=== PATIENT | male | born 1980 | race Caucasian/White ===

== ENCOUNTER 2017-03-25 21:44 | Emergency (ER) | payer OTHER ==
[~2017-03-25] VITALS: Ht 185.4 cm; Wt 83.9 kg
--- NOTE | ~2017-03-25 | CR173 ---
[facility]. [facility] A Service of [facility] & [facility] RADIOLOGY TEXT RESULTS PATIENT: NYA FROST LOCATION: SED : 76 UNIT #: [id number] AGE: [address]: Alexandre Simon MD SEX: M ORDER DR: [id number] [id number] E MR#: [id number] Acc #: [id number] NAME: NYA FROST : 1980 SEX: M STUDY DATE/TIME: 03/25/2017 23:24 UNIT: SED ROOM: STUDY DESCRIPTION: CR Knee 3 Views Rt Attending Physician: Alexandre Simon M.D. Ordering Physician: Alexandre Simon M.D. Primary Care Physician: No Primary Care Physician MEDICAL IMAGING REPORT This report is preliminary unless electronic signature is present. EXAM Right knee series. INDICATIONS Right knee pain and swelling since Saturday after an injury. PROCEDURE Three views of the right knee. COMPARISON None. FINDINGS Anterior knee soft tissue swelling. No acute fracture, dislocation or joint effusion. IMPRESSION Anterior knee soft tissue swelling. No acute bone injury. Dictated by... Mushtaq Sandy M.D. THIS IS AN ELECTRONICALLY VERIFIED REPORT Mushtaq Sandy M.D. at 03/26/2017 9:53 PM EED/manuel TD: 03/26/2017 13:28 JOB #: [id number] MEDICAL IMAGING REPORT Page 1 of 1
[~2017-03-25 21:44] MED LIST: ACETAMINOPHEN PO; BENADRYL25 M1 PO; BENTYL20 MG PO; CATAPRES0.1 MG PO; CIPRO PO; FAMOTIDINE PO; FLAGYL PO; FLEXERIL10 M1 PO; K-DUR20 ME2 DOB; LORTAB 5/500 TA1 TA1 PO; NO MEDICATIONS; PEPCID AC20 M2 PO; PHENERGAN SUPP25 MG PR; PHENERGAN12.5 M1 PR; PHENERGAN25 M1 PO; PHENERGAN25 MG PO; PRILOSEC PO; PRILOSEC20 MG PO; PROTONIX PO; REGLAN10 MG PO; VOLTAREN75 MG PO; ZANTAC150 MG PO; ZOFRAN ODT4 MG PO; ZOFRAN PO
[2017-03-25] MEDS ORDERED: NO MEDICATIONS (21:54)
[2017-03-25 22:43] LABS: BASOPHIL# 0.1 X10e3 (0-0.3); BASOPHIL% 0.9 % (0-2.5); EOSINOPHIL% 0.4 % (0.0-7.0); HEMOGLOBIN 12.2 gm/dL (13.0-16.0); LYMPHOCYTE# 1.9 X10e3 (1.0-3.5); MEAN CELL VOLUME 85.5 FL (83-96); MEAN CORPUSCULAR HEMOGLOBIN 29.1 PG (28-34); MEAN PLATELET VOLUME 7.4 FL (6.5-11.5); MONOCYTE# 1.3 X10e3 (0-1.0); MONOCYTE% 10.4 % (3.0-12.0); NEUTROPHIL# 9.1 X10e3 (1.5-7.1); NEUTROPHIL% 73.3 % (40-75); PLATELET COUNT 238 X10e3 (140-420); RED CELL DISTRIBUTION WIDTH 13.7 % (11.0-15.5); WHITE BLOOD COUNT 12.4 X10e3 (4.0-10.5)
[2017-03-25 22:44] LABS: DIFF IND NO
[2017-03-25 22:54] LABS: BUN/CREATININE RATIO 12.5; CALCIUM SERUM 8.4 mg/dL (8.4-10.2); CREATININE SERUM 0.8 mg/dL (0.6-1.4); GLOM FILT RATE Estimated 113.4 mL/min (>60); POTASSIUM 3.7 mmol/L (3.5-5.1)
== END 2017-03-26 02:03 | disposition home or self-care (01) ==
LOC: SED 21:44
PROVIDERS: Emergency Medicine
DX: L03.115 Cellulitis of right lower limb (principal); F41.9 Anxiety disorder, unspecified; F17.200 Nicotine dependence, unspecified, uncomplicated
CPT/HCPCS: 36415; 73562; 80048; 85025; 85651; 96365; 96375; 99284; J0696; J1170; J2405

== ENCOUNTER 2017-05-17 14:10 | Emergency (ER) | payer OTHER ==
[~2017-05-17] VITALS: Ht 185.4 cm; Wt 81.6 kg
--- NOTE | ~2017-05-17 | EKG ---
PATIENT: NYA FROST UNIT #: [id number] Ventricular Rate: 85 BPM Atrial Rate: 85 BPM P-R Interval: 132 ms QRS Duration: 98 ms Q-T Interval: 382 ms QTC Calculation(Bezet): 454 ms P Grabill: 75 degrees Calculated R Grabill: 83 degrees Calculated T Grabill: 48 degrees Diagnosis Line: Normal sinus rhythm Diagnosis Line: Normal ECG Diagnosis Line: When compared with ECG of 30-OCT-2015 23:52, Diagnosis Line: No significant change was found Diagnosis Line: Confirmed by RUBÉN SARAH MD ([id number]) on 05/19/2017 Diagnosis Line: 10:59:34 PM INTERPRETING MD: TYREL WYATT
--- NOTE | ~2017-05-17 | CR72 ---
[facility] A Service [facility] RADIOLOGY TEXT RESULTS PATIENT: NYA FROST LOCATION: [facility] : [birth year] UNIT #: [id number] AGE: [address]: Maximilian Whiting MD SEX: M ORDER DR: [id number] [facility]. [place], [place] [address] [id number] E MR#: [id number] Acc #: [id number] NAME: NYA FROST : 1980 SEX: M STUDY DATE/TIME: 05/17/2017 14:43 UNIT: [facility] ROOM: STUDY DESCRIPTION: CR Chest Single View Portable Attending Physician: Maximilian Whiting M.D. Ordering Physician: Maximilian Whiting M.D. Primary Care Physician: No Primary Care Physician MEDICAL IMAGING REPORT This report is preliminary unless electronic signature is present EXAM Portable chest x-ray, 05/17/2017. HISTORY Chest pain, cough, congestion, smoked marijuana 12:30 p.m. Chest pain, short of air. TECHNIQUE AP radiograph of the chest is presented. COMPARISON 11/27/2009 FINDINGS Heart and mediastinum normal in size and contour. The lungs are well-inflated bilaterally. There is no evidence of acute infectious or inflammatory disease, pleural effusion or pneumothorax. No suspicious nodule. The bony structures are unremarkable. Dictated by... Gerardo Combs M.D. THIS IS AN ELECTRONICALLY VERIFIED REPORT Gerardo Combs M.D. at 05/18/2017 2:16 PM MEGA/darlene TD: 05/17/2017 21:23 JOB #: [id number] MEDICAL IMAGING REPORT [facility] A Service [facility] RADIOLOGY TEXT RESULTS PATIENT: NYA FROST LOCATION: [facility] : 76 UNIT #: [id number] AGE: [address]: Maximilian Whiting MD SEX: M ORDER DR: Page 1 of 1 COPY
[2017-05-17 15:21] LABS: BASOPHIL# 0.1 X10e3 (0-0.3); BASOPHIL% 0.8 % (0-2.5); EOSINOPHIL# 0.1 X10e3 (0-0.7); EOSINOPHIL% 1.3 % (0.0-7.0); HEMATOCRIT 38.9 % (38.0-50.0); HEMOGLOBIN 13.5 gm/dL (13.0-16.0); LYMPHOCYTE# 2.8 X10e3 (1.0-3.5); LYMPHOCYTE% 35.3 % (17.0-45.0); MEAN CELL VOLUME 83.5 FL (83-96); MEAN CORPUSCULAR HEMOGLOBIN 29.1 PG (28-34); MEAN CORPUSCULAR HGB CONC 34.8 g/dL (30-36); MEAN PLATELET VOLUME 7.2 FL (6.5-11.5); MONOCYTE# 0.8 X10e3 (0-1.0); MONOCYTE% 10.8 % (3.0-12.0); NEUTROPHIL# 4.1 X10e3 (1.5-7.1); NEUTROPHIL% 51.8 % (40-75); PLATELET COUNT 255 X10e3 (140-420); RED BLOOD COUNT 4.66 X10e (3.90-5.60); RED CELL DISTRIBUTION WIDTH 13.1 % (11.0-15.5); WHITE BLOOD COUNT 7.8 X10e3 (4.0-10.5)
[2017-05-17 15:23] LABS: DIFF IND NO
[2017-05-17 15:29] LABS: ALBUMIN SERUM 3.9 g/dL (3.5-5.0); BILIRUBIN,TOTAL 0.5 mg/dL (0.2-2.0); CALCIUM SERUM 9.2 mg/dL (8.4-10.2); CREATININE SERUM 1.3 mg/dL (0.6-1.4); GLOM FILT RATE Estimated 69.2 mL/min (>60); POTASSIUM 3.5 mmol/L (3.5-5.1); PROTEIN TOTAL SERUM 6.9 g/dL (6.0-8.3)
[2017-05-17 15:36] LABS: POC - CKMB 1.3 ng/mL (0.0-7.9); POC - TROPONIN <0.05 ng/mL (<=0.05)
== END 2017-05-17 17:35 | disposition short-term general hospital (02) ==
LOC: CED 14:10
PROVIDERS: Emergency Medicine
DX: R07.89 Other chest pain (principal); F19.10 Other psychoactive substance abuse, uncomplicated; F17.200 Nicotine dependence, unspecified, uncomplicated; Z90.49 Acquired absence of other specified parts of digestive tract
CPT/HCPCS: 71010; 80053; 82553; 84484; 85025; 93005; 96374; 99285; J2060